=== PATIENT | male | born 1940 | race Caucasian/White ===

== ENCOUNTER 2016-11-04 09:32 | Outpatient (CLI) | payer MEDICARE, MEDICAID ==
[2016-11-04 11:14] LABS: ALT (SGPT) 21 U/L (0-55); AST (SGOT) 20 U/L (5-34); Alkaline Phosphatase 61 U/L (40-150); Anion Gap 14 mmol/L (10-20); BUN (Urea Nitrogen) 27 mg/dL (8.4-25.7); Bilirubin, Direct 0.3 mg/dL (0.1-0.3); Bilirubin, Total 0.8 mg/dL (0.2-1.2); Calc. Creatinine Clearance 0 mL/min (70-130); Calcium 8.8 mg/dL (7.8-10.44); Carbon Dioxide 24 mmol/L (23-31); Chloride 107 mmol/L (98-107); Estimated GFR-MDRD 63; Globulin 2.7 g/dL (2.4-3.5); LDL Cholesterol, Calculated 104 mg/dL; Protein, Total 6.6 g/dL (5.8-8.1)
[2016-11-04 12:03] LABS: #Basophils 0.1 thou/uL (0.0-0.2); #Eosinphils 0.4 thou/uL (0.0-0.7); #Lymphocytes 2.7 thou/uL (1.20-3.40); #Monocytes 1.1 thou/uL (0.11-0.59); #Neutrophils 7.2 thou/uL (1.40-6.50); %Basophils 0.5 % (0.0-1.0); %Eosinophils 3.4 % (0.0-10.0); %Lymphocytes 23.3 % (21.0-51.0); %Monocytes 9.7 % (0.0-10.0); Hematocrit 39.4 % (42.0-52.0); Mean Platelet Volume 7.1 fL (7.4-10.4); Red Blood Cell (RBC) Count 4.12 mill/uL (4.70-6.10); White Blood Cell (WBC) Count 11.5 thou/uL (4.8-10.8)
[2016-11-04 12:14] LABS: Hemoglobin A1c 5.6 % (4.0-6.0)
== END 2016-11-04 09:33 | disposition home or self-care (01) ==
LOC: NAV LABSP 09:32
PROVIDERS: ATTEND Family Medicine
DX: E78.5 Hyperlipidemia, unspecified (principal); E55.9 Vitamin D deficiency, unspecified; E16.2 Hypoglycemia, unspecified; I10 Essential (primary) hypertension
CPT/HCPCS: 36415; 80053; 80061; 82248; 82306; 83036; 84443; 85025

== ENCOUNTER 2016-12-11 07:50 | Outpatient (CLI) | payer MEDICARE, OTHER ==
[2016-12-12 14:20] LABS: Anion Gap 23 mmol/L (10-20); BUN (Urea Nitrogen) 38 mg/dL (8.4-25.7); Calc. Creatinine Clearance 0 mL/min (70-130); Calcium 9.8 mg/dL (7.8-10.44); Carbon Dioxide 23 mmol/L (23-31); Estimated GFR-MDRD 52
[2016-12-12 14:54] LABS: Chloride 103 mmol/L (98-107)
== END 2016-12-11 07:51 | disposition home or self-care (01) ==
LOC: NAV LABSP 07:50
PROVIDERS: ATTEND Family Medicine
DX: I12.9 Hypertensive chronic kidney disease with stage 1 through stage 4 chronic kidney disease, or unspecified chronic kidney disease (principal); N18.9 Chronic kidney disease, unspecified
CPT/HCPCS: 36415; 80048

== ENCOUNTER 2017-01-14 11:54 | Emergency (ER) | payer MEDICARE, MEDICAID ==
[2017-01-14] MEDS ORDERED: Adacel (T-DAP) 0.5 ML VIAL ONE (12:49)
--- NOTE | 2017-01-14 12:52 | CT ---
NONCONTRAST CT HEAD HISTORY: Fall. Head injury. COMPARISON: No comparison. FINDINGS: There is no evidence of acute intracranial hemorrhage or infarct. The ventricles appear normal in s ize, shape, and position. There is no mass effect or shift of midline structures. Diffuse cortical atrophy and chronic ischemic small vessel disease are evident. IMPRESSION: No acute traumatic injury is demonstrated. POS: [facility]
--- NOTE | 2017-01-14 12:54 | CT ---
NONCONTRAST CT CERVICAL SPINE HISTORY: Fall. Neck injury. FINDINGS: Vertebral body heights are maintained. Prominent osteophytosis is present throughout the vertebral bodies and facets. No acute fracture or dislocation is apparent. There is disk space narrowing kacy t is most pronounced at the C3-C4, C5-C6, C6-C7, and C7-T1 levels. Cervical thoracic alignment is i ntact. IMPRESSION: Prominent cervical spondylosis. No acute osseous abnormalities are demonstrated. POS: [facility]
[2017-01-14 13:02] LABS: #Basophils 0.1 thou/uL (0.0-0.2); #Eosinphils 0.5 thou/uL (0.0-0.7); #Lymphocytes 2.1 thou/uL (1.20-3.40); #Monocytes 0.9 thou/uL (0.11-0.59); #Neutrophils 5.8 thou/uL (1.40-6.50); %Basophils 1.1 % (0.0-1.0); %Eosinophils 5.8 % (0.0-10.0); %Monocytes 9.1 % (0.0-10.0); %Neutrophils 62.1 % (42.0-75.0); Hemoglobin 12.4 g/dL (14.0-18.0); Mean Corpuscular HGB CONC 32.4 g/dL (32.0-36.0); Mean Corpuscular Hemoglobin 30.1 pg (27.0-31.0); Mean Platelet Volume 6.3 fL (7.4-10.4); Platelet Count 229 thou/uL (130-400); RBC Distribution Width 12.9 % (11.5-14.5); White Blood Cell (WBC) Count 9.4 thou/uL (4.8-10.8)
[2017-01-14 13:05] LABS: Prothrombin Time 12.8 SEC (12.0-14.7)
[2017-01-14 13:11] LABS: ALT (SGPT) 21 U/L (0-55); AST (SGOT) 25 U/L (5-34); Albumin 3.8 g/dL (3.4-4.8); Alkaline Phosphatase 59 U/L (40-150); Anion Gap 16 mmol/L (10-20); BUN (Urea Nitrogen) 44 mg/dL (8.4-25.7); Bilirubin, Total 0.4 mg/dL (0.2-1.2); Calc. Creatinine Clearance 0 mL/min (70-130); Carbon Dioxide 24 mmol/L (23-31); Chloride 103 mmol/L (98-107); Estimated GFR-MDRD 52; Globulin 3.6 g/dL (2.4-3.5); Glucose 82 mg/dL (83-110); Potassium 4.6 mmol/L (3.5-5.1); Protein, Total 7.4 g/dL (5.8-8.1); Sodium 138 mmol/L (136-145)
[2017-01-14] MEDS ORDERED: Bacitracin Zinc 1 Packet ONE (14:49)
== END 2017-01-14 16:22 ==
LOC: NAV ERS 11:54
DX: S01.01XA Laceration without foreign body of scalp, initial encounter (principal); Z79.899 Other long term (current) drug therapy; Z79.84 Long term (current) use of oral hypoglycemic drugs; W19.XXXA Unspecified fall, initial encounter
CPT/HCPCS: 12001; 36415; 70450; 72125; 80053; 85025; 85610; 90715; 93005

== ENCOUNTER 2017-02-21 07:34 | Outpatient (CLI) | payer MEDICARE, MEDICAID ==
[2017-02-21 11:59] LABS: ALT (SGPT) 21 U/L (0-55); AST (SGOT) 23 U/L (5-34); Albumin 3.9 g/dL (3.4-4.8); Alkaline Phosphatase 65 U/L (40-150); Anion Gap 17 mmol/L (10-20); BUN (Urea Nitrogen) 39 mg/dL (8.4-25.7); Bilirubin, Direct 0.3 mg/dL (0.1-0.3); Bilirubin, Total 0.7 mg/dL (0.2-1.2); Calc. Creatinine Clearance 0 mL/min (70-130); Calcium 9.1 mg/dL (7.8-10.44); Carbon Dioxide 23 mmol/L (23-31); Cardiac Risk 3.2 (Less than 4.5); Chloride 104 mmol/L (98-107); Cholesterol 181 mg/dL (< 200 Desired); Estimated GFR-MDRD 52; Globulin 2.9 g/dL (2.4-3.5); Glucose 89 mg/dL (83-110); HDL Cholesterol 56 mg/dL (>60 Neg Risk); LDL Cholesterol, Calculated 108 mg/dL; Potassium 4.9 mmol/L (3.5-5.1); Protein, Total 6.8 g/dL (5.8-8.1); Sodium 139 mmol/L (136-145); Triglycerides 85 mg/dL (Less than 150)
[2017-02-21 12:04] LABS: #Basophils 0.1 thou/uL (0.0-0.2); #Eosinphils 0.7 thou/uL (0.0-0.7); #Lymphocytes 2.3 thou/uL (1.20-3.40); #Monocytes 0.9 thou/uL (0.11-0.59); #Neutrophils 5.6 thou/uL (1.40-6.50); %Eosinophils 7.2 % (0.0-10.0); %Neutrophils 58.8 % (42.0-75.0); Hemoglobin 12.2 g/dL (14.0-18.0); Mean Corpuscular HGB CONC 32.9 g/dL (32.0-36.0); Mean Corpuscular Hemoglobin 30.2 pg (27.0-31.0); Mean Corpuscular Volume 91.9 fl (80.0-94.0); Mean Platelet Volume 6.5 fL (7.4-10.4); Platelet Count 193 thou/uL (130-400); RBC Distribution Width 13.1 % (11.5-14.5); Red Blood Cell (RBC) Count 4.03 mill/uL (4.70-6.10); White Blood Cell (WBC) Count 9.5 thou/uL (4.8-10.8)
[2017-02-21 12:24] LABS: Vitamin D, 25 Hydroxy 43.9 ng/mL (> 30.0)
[2017-02-21 13:04] LABS: Hemoglobin A1c 5.8 % (4.0-6.0)
== END 2017-02-21 07:35 | disposition home or self-care (01) ==
LOC: NAV LABSP 07:34
PROVIDERS: ATTEND Family Medicine
DX: E78.5 Hyperlipidemia, unspecified (principal); E55.9 Vitamin D deficiency, unspecified; E16.2 Hypoglycemia, unspecified; I10 Essential (primary) hypertension
CPT/HCPCS: 36415; 80053; 80061; 82248; 82306; 83036; 84443; 85025

== ENCOUNTER 2017-05-28 07:44 | Outpatient (CLI) | payer MEDICARE, OTHER ==
[2017-05-28 09:15] LABS: Bilirubin Negative (Negative); Blood, Urine Trace (Negative); Clarity Clear (Clear); Glucose, Urine (Dipstick) Negative (Negative); Leukocyte Large (Negative); Nitrite Negative (Negative); Protein, Urine (Dipstick) 30 mg/dL (Neg-Trace); Specific Gravity, Urine 1.015 (1.005-1.030); Urobilinogen 0.2 mg/dL (0.2-1.0); pH, Urine 5.5 (5.0-9.0)
[2017-05-28 09:24] LABS: Bacteria/HPF 3+ HPF (None Seen); Squamous Epithelial 0-3 HPF (0-3)
[2017-05-28 17:55] LABS: Creatinine, Urine 66.66 mg/dL (63-166); Microalbumin Urine 17.3 mg/dL (0.5-50.0); Microalbumin/Creat Ratio 259.5 mg/g (Less than 30)
== END 2017-05-28 07:45 | disposition home or self-care (01) ==
LOC: NAV LABSP 07:44
PROVIDERS: ATTEND Family Medicine
DX: R82.90 Unspecified abnormal findings in urine (principal); E11.9 Type 2 diabetes mellitus without complications
CPT/HCPCS: 81003; 81015; 82043; 87086

== ENCOUNTER 2017-07-07 09:20 | Outpatient (CLI) | payer MEDICARE, OTHER ==
[2017-07-10 07:29] LABS: % Free PSA 30.1 % (.); Total PSA 8.6 ng/mL (0.0-4.0)
== END 2017-07-07 09:21 | disposition home or self-care (01) ==
LOC: NAV LABSP 09:20
PROVIDERS: ATTEND Urology
DX: R97.20 Elevated prostate specific antigen [PSA] (principal)
CPT/HCPCS: 36415; 84153; 84154; 84270; 84403

== ENCOUNTER 2017-10-24 08:59 | Outpatient (CLI) | payer MEDICARE ==
[2017-10-24 10:11] LABS: #Basophils 0.1 thou/uL (0.0-0.2); #Eosinphils 0.2 thou/uL (0.0-0.7); #Lymphocytes 2.3 thou/uL (1.20-3.40); #Monocytes 0.9 thou/uL (0.11-0.59); #Neutrophils 11.1 thou/uL (1.40-6.50); %Basophils 0.5 % (0.0-1.0); %Eosinophils 1.3 % (0.0-10.0); %Lymphocytes 15.6 % (21.0-51.0); %Monocytes 6.1 % (0.0-10.0); %Neutrophils 76.5 % (42.0-75.0); Hemoglobin 12.7 g/dL (14.0-18.0); Mean Corpuscular HGB CONC 32.5 g/dL (32.0-36.0); Mean Corpuscular Hemoglobin 29.1 pg (27.0-31.0); Mean Corpuscular Volume 89.6 fl (80.0-94.0); Mean Platelet Volume 7.9 fL (7.4-10.4); Platelet Count 197 thou/uL (130-400); RBC Distribution Width 14.1 % (11.5-14.5); Red Blood Cell (RBC) Count 4.34 mill/uL (4.70-6.10); White Blood Cell (WBC) Count 14.5 thou/uL (4.8-10.8)
== END 2017-10-24 09:00 | disposition home or self-care (01) ==
LOC: NAV LABSP 08:59
PROVIDERS: ATTEND Family Medicine
DX: J30.9 Allergic rhinitis, unspecified (principal)
CPT/HCPCS: 36415; 85025